=== PATIENT | female | born 1940 | race Caucasian/White ===

== ENCOUNTER 2018-08-25 08:56 | Day surgery (SDC) | payer OTHER | END 2018-08-25 17:15 | disposition home or self-care (01) | LOC: AMB-ENDOS 08:56 | DX: K22.2 Esophageal obstruction (principal); K44.9 Diaphragmatic hernia without obstruction or gangrene ==

== ENCOUNTER 2022-02-01 09:00 | Day surgery (SDC) | payer OTHER | END 2022-02-01 14:20 | disposition home or self-care (01) | LOC: AMB-ENDOS 09:00 | PROVIDERS: ATTEND Internal Medicine Gastroenterology | DX: R13.10 Dysphagia, unspecified (principal); K31.7 Polyp of stomach and duodenum; K22.2 Esophageal obstruction; Z20.822 Contact with and (suspected) exposure to COVID-19 ==